=== PATIENT | female | born 1960 | race Caucasian/White ===

== ENCOUNTER 2016-05-22 23:30 | Emergency (ER) | payer OTHER ==
[~2016-05-22] VITALS: Ht 177.8 cm; Wt 97.5 kg
--- NOTE | ~2016-05-22 | EKG ---
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
[~2016-05-22 23:30] MED LIST: CLARITIN10 MG PO; HYDROCHLOROTHIA25 M1 PO; SIMVASTATIN40 MG PO
[2016-05-22] MEDS ORDERED: CELEBREX 200 M200 M1 PO (23:43)
[2016-05-22] MEDS ORDERED: VENTOLIN HFA 1818 GM INH (23:43)
[2016-05-22] MEDS ORDERED: LEVAQUIN 500 M500 M2 PO (23:43)
[2016-05-22 23:54] LABS: ABSOLUTE NEUTROPHILS 9.8 thou/uL (1.4-8.2); BASOPHILS 0.4 % (0.0-2.0); EOSINOPHILS 1.9 % (0.0-3.0); HEMATOCRIT 39.2 % (37.0-47.0); HEMOGLOBIN 13.7 gm/dL (12.0-15.0); LYMPHOCYTES 11.9 % (24.0-44.0); MANUAL DIFF NO; MCH 30.8 pg (26.0-34.0); MCV 87.9 fL (80.0-100.0); MONOCYTES 5.7 % (1.0-8.0); PLATELET COUNT 320 thou/uL (150-400); POLYS 80.1 % (36.0-66.0); RBC 4.46 mil/uL (4.20-5.00); RDW 12.2 % (10.5-14.5); WBC 12.2 thou/uL (4.0-11.0)
[2016-05-23 00:11] LABS: ALBUMIN 3.8 g/dL (3.4-5.0); ALKALINE PHOSPHATASE 73 U/L (46-116); ANION GAP 9 mmol/L (7-16); BUN 24 mg/dL (7-18); CALCIUM 9.6 mg/dL (8.5-10.1); CHLORIDE 100 mmol/L (98-107); CO2 31 mmol/L (21-32); CREATININE 1.1 mg/dL (0.6-1.3); GLUCOSE 113 mg/dL (70-99); SGOT 24 U/L (15-37); SGPT 30 U/L (30-65); SODIUM 140 mmol/L (136-145); TOTAL BILIRUBIN 0.7 mg/dL (<0.1-1.0); TOTAL PROTEIN 7.9 g/dL (6.4-8.2); TROPONIN-I < 0.04 ng/mL (<0.04-0.07)
[2016-05-23 00:17] LABS: URINE BILIRUBIN NEGATIVE (Negative); URINE BLOOD NEGATIVE (Negative); URINE COLOR YELLOW; URINE GLUCOSE-RANDOM* NEGATIVE (Negative); URINE KETONES NEGATIVE (Negative); URINE LEUKOCYTES-REFLEX NEGATIVE (Negative); URINE PROTEIN (DIPSTICK) NEGATIVE (Negative); URINE UROBILINOGEN 0.2 E.U./dl (0.2-1.0)
[2016-05-23 00:19] LABS: POTASSIUM 2.9 mmol/L (3.5-5.1)
[2016-05-23 00:40] LABS: MAGNESIUM 1.9 mg/dL (1.8-2.4)
[2016-05-23] MEDS ORDERED: ZOFRAN ODT8 MG PO (00:48)
[2016-05-23] MEDS ORDERED: PRILOSEC 20 MG20 MG PO (00:48)
[2016-05-23 00:50] LABS: APTT 22.4 Seconds (24.5-32.8); PROTIME 10.3 Seconds (9.3-11.4)
[2016-05-23] MEDS ORDERED: POTASSIUM20 PO ×2 (00:50→00:51)
[2016-05-23 01:06] VITALS: BP 134/76
== END 2016-05-23 01:07 | disposition home or self-care (01) ==
LOC: ER 23:30
PROVIDERS: Emergency Medicine; Physician Assistant
DX: K21.0 Gastro-esophageal reflux disease with esophagitis (principal); R19.7 Diarrhea, unspecified; E87.6 Hypokalemia; R11.0 Nausea; I10 Essential (primary) hypertension; J45.909 Unspecified asthma, uncomplicated; E78.5 Hyperlipidemia, unspecified; F10.99 Alcohol use, unspecified with unspecified alcohol-induced disorder; Z88.5 Allergy status to narcotic agent